=== PATIENT | female | born 1980 | race Caucasian/White ===

== ENCOUNTER 2017-09-07 12:43 | Emergency (ER) | payer OTHER ==
[~2017-09-07] VITALS: Ht 162.6 cm; Wt 118.6 kg
[2017-09-07 13:13] VITALS: Ht 162.6 cm; Wt 118.6 kg
[2017-09-07 16:10] VITALS: BP 140/90
== END 2017-09-07 16:10 | disposition home or self-care (01) ==
LOC: ED 12:43
DX: H60.502 Unspecified acute noninfective otitis externa, left ear (principal)

== ENCOUNTER 2017-09-08 02:56 | Emergency (ER) | payer OTHER | END 2017-09-08 03:33 | disposition left against medical advice (07) | LOC: ED 02:56 | DX: Z53.21 Procedure and treatment not carried out due to patient leaving prior to being seen by health care provider (principal) ==

== ENCOUNTER 2017-09-24 23:59 | Emergency (ER) | payer OTHER ==
[~2017-09-24] VITALS: Ht 167.6 cm; Wt 119.7 kg
[2017-09-25 00:43] VITALS: Ht 167.6 cm; Wt 119.7 kg
[2017-09-25 06:02] VITALS: BP 178/94
== END 2017-09-25 06:02 | disposition home or self-care (01) ==
LOC: ED 23:59
DX: S00.03XA Contusion of scalp, initial encounter (principal); H60.91 Unspecified otitis externa, right ear; I10 Essential (primary) hypertension; E11.9 Type 2 diabetes mellitus without complications; V49.9XXA Car occupant (driver) (passenger) injured in unspecified traffic accident, initial encounter; Y93.89 Activity, other specified; Y92.410 Unspecified street and highway as the place of occurrence of the external cause; Y99.8 Other external cause status
CPT/HCPCS: 90715

== ENCOUNTER 2018-01-17 15:23 | Emergency (ER) | payer OTHER ==
[~2018-01-17] VITALS: Ht 157.5 cm; Wt 118.8 kg
[2018-01-17 15:39] VITALS: Ht 157.5 cm; Wt 118.8 kg
[2018-01-17 17:23] VITALS: BP 182/131
== END 2018-01-17 17:23 | disposition home or self-care (01) ==
LOC: ED 15:23
DX: H66.91 Otitis media, unspecified, right ear (principal); I10 Essential (primary) hypertension; E11.9 Type 2 diabetes mellitus without complications

== ENCOUNTER 2018-01-31 15:51 | Emergency (ER) | payer OTHER ==
[~2018-01-31] VITALS: Ht 165.1 cm; Wt 117.0 kg
[2018-01-31 15:53] VITALS: Ht 165.1 cm; Wt 117.0 kg
[2018-01-31 17:08] VITALS: BP 171/91
== END 2018-01-31 17:08 | disposition home or self-care (01) ==
LOC: ED 15:51
DX: H66.92 Otitis media, unspecified, left ear (principal); E11.9 Type 2 diabetes mellitus without complications; I10 Essential (primary) hypertension
CPT/HCPCS: J1100

== ENCOUNTER 2018-03-07 16:38 | Emergency (ER) | payer OTHER ==
[~2018-03-07] VITALS: Ht 170.2 cm; Wt 117.2 kg
[2018-03-07 16:46] VITALS: Ht 170.2 cm; Wt 117.2 kg
[2018-03-07 18:18] VITALS: BP 156/86
== END 2018-03-07 18:18 | disposition home or self-care (01) ==
LOC: ED 16:38
DX: H66.92 Otitis media, unspecified, left ear (principal); H60.92 Unspecified otitis externa, left ear; I10 Essential (primary) hypertension; E11.9 Type 2 diabetes mellitus without complications
CPT/HCPCS: J1100

== ENCOUNTER 2018-03-09 04:15 | Emergency (ER) | payer OTHER ==
[~2018-03-09] VITALS: Ht 170.2 cm; Wt 118.0 kg
[2018-03-09 04:25] VITALS: Ht 170.2 cm; Wt 118.0 kg
[2018-03-09 05:33] LABS: BASOPHIL % 0.2 % (0-2); PLATELET COUNT 354 x10^3mcL (130-400)
[2018-03-09 05:36] LABS: RED CELL DISTRIBUTION WIDTH 17.3 % (11.5-14.5)
[2018-03-09 05:47] LABS: CALCIUM 9.2 mg/dL (8.5-10.1); CARBON DIOXIDE 24.2 mmol/L (21-32); CHLORIDE SERUM 104 mmol/L (98-107); GFR1 > 60 mL/min; GLUCOSE SERUM 111 mg/dL (74-106); POTASSIUM SERUM 3.1 mmol/L (3.5-5.1); SODIUM SERUM 140 mmol/L (136-145)
[2018-03-09 05:52] LABS: ALBUMIN 3.6 g/dL (3.4-5.0); ALKALINE PHOSPHATASE 37 U/L (46-116); ALT/SGPT 34 U/L (14-59); AST/SGOT 25 U/L (15-37); BILIRUBIN TOTAL 0.65 mg/dL (0.20-1.00); LIPASE 89 IU/L (73-393); TOTAL PROTEIN, SERUM 7.7 g/dL (6.4-8.2)
[2018-03-09 08:45] VITALS: BP 136/80
== END 2018-03-09 08:45 | disposition home or self-care (01) ==
LOC: ED 04:15
PROVIDERS: Emergency Medicine
DX: N83.202 Unspecified ovarian cyst, left side (principal); H60.92 Unspecified otitis externa, left ear; I10 Essential (primary) hypertension; E11.9 Type 2 diabetes mellitus without complications
CPT/HCPCS: 36415

== ENCOUNTER 2018-04-28 00:20 | Emergency (ER) | payer OTHER ==
[~2018-04-28] VITALS: Ht 172.7 cm; Wt 117.9 kg
[2018-04-28 01:13] VITALS: BP 161/94
== END 2018-04-28 01:14 | disposition home or self-care (01) ==
LOC: ED 00:20
DX: H92.02 Otalgia, left ear (principal); I10 Essential (primary) hypertension; E66.9 Obesity, unspecified
CPT/HCPCS: J1100

== ENCOUNTER 2018-06-05 13:30 | Emergency (ER) | payer SELFPAY ==
[~2018-06-05] VITALS: Ht 172.7 cm; Wt 117.0 kg
[2018-06-05 13:38] VITALS: Ht 172.7 cm; Wt 117.0 kg
[2018-06-05 15:24] VITALS: BP 162/89
== END 2018-06-05 15:00 | disposition home or self-care (01) ==
LOC: ED 13:30
DX: H60.92 Unspecified otitis externa, left ear (principal); I10 Essential (primary) hypertension
CPT/HCPCS: J1885

== ENCOUNTER 2018-08-08 00:18 | Emergency (ER) | payer OTHER ==
[~2018-08-08] VITALS: Ht 172.7 cm; Wt 114.8 kg
[2018-08-08 00:29] VITALS: BP 162/88; Ht 172.7 cm; Wt 114.8 kg
== END 2018-08-08 01:42 | disposition left against medical advice (07) ==
LOC: ED 00:18
DX: Z53.21 Procedure and treatment not carried out due to patient leaving prior to being seen by health care provider (principal)

== ENCOUNTER 2018-09-05 13:34 | Emergency (ER) | payer OTHER ==
[~2018-09-05] VITALS: Ht 172.7 cm; Wt 111.6 kg
[2018-09-05 13:45] VITALS: BP 163/79; Ht 172.7 cm; Wt 111.6 kg
== END 2018-09-05 14:43 | disposition home or self-care (01) ==
LOC: ED 13:34
DX: K04.7 Periapical abscess without sinus (principal); H60.91 Unspecified otitis externa, right ear; J06.9 Acute upper respiratory infection, unspecified; I10 Essential (primary) hypertension

== ENCOUNTER 2018-09-17 01:07 | Emergency (ER) | payer SELFPAY ==
[~2018-09-17] VITALS: Ht 172.7 cm; Wt 111.1 kg
[2018-09-17 01:09] VITALS: Ht 172.7 cm; Wt 111.1 kg
[2018-09-17 02:12] VITALS: BP 165/93
== END 2018-09-17 02:12 | disposition home or self-care (01) ==
LOC: ED 01:07
DX: G89.29 Other chronic pain (principal); R10.32 Left lower quadrant pain; I10 Essential (primary) hypertension
CPT/HCPCS: J1885

== ENCOUNTER 2019-02-19 01:06 | Emergency (ER) | payer OTHER ==
[~2019-02-19] VITALS: Ht 172.7 cm; Wt 116.1 kg
[2019-02-19 01:11] VITALS: BP 157/103; Ht 172.7 cm; Wt 116.1 kg
== END 2019-02-19 01:35 | disposition home or self-care (01) ==
LOC: ED 01:06
DX: H60.502 Unspecified acute noninfective otitis externa, left ear (principal); I10 Essential (primary) hypertension

== ENCOUNTER 2019-05-30 08:32 | Emergency (ER) | payer OTHER ==
[~2019-05-30] VITALS: Ht 172.7 cm; Wt 116.6 kg
[2019-05-30 08:33] VITALS: Ht 172.7 cm; Wt 116.6 kg
[2019-05-30 09:58] VITALS: BP 132/74
== END 2019-05-30 09:58 | disposition home or self-care (01) ==
LOC: ED 08:32
DX: H66.91 Otitis media, unspecified, right ear (principal); K08.89 Other specified disorders of teeth and supporting structures; I10 Essential (primary) hypertension; Z98.890 Other specified postprocedural states

== ENCOUNTER 2019-08-31 23:57 | Inpatient (IN) | payer OTHER ==
[~2019-08-31] VITALS: Ht 172.7 cm; Wt 112.5 kg
[2019-09-01 00:01] VITALS: Ht 172.7 cm; Wt 112.5 kg
[2019-09-01 01:04] LABS: BASOPHIL % 0.1 % (0-2); PLATELET COUNT 235 x10^3mcL (130-400); RED CELL DISTRIBUTION WIDTH 20.1 % (11.5-14.5)
[2019-09-01 01:11] LABS: CALCIUM 8.4 mg/dL (8.5-10.1); CARBON DIOXIDE 24.1 mmol/L (21-32); CHLORIDE SERUM 105 mmol/L (98-107); CREATININE SERUM 0.8 mg/dL (0.6-1.0); GFR1 > 60 mL/min; GLUCOSE SERUM 102 mg/dL (74-106); POTASSIUM SERUM 3.6 mmol/L (3.5-5.1); SODIUM SERUM 137 mmol/L (136-145)
[2019-09-01 01:12] LABS: rbc morphology (normal/abnorm) ABNORMAL (NORMAL)
[2019-09-01 01:17] LABS: ALKALINE PHOSPHATASE 54 U/L (46-116); ALT/SGPT 385 U/L (14-59); AST/SGOT 182 U/L (15-37); LIPASE 63 IU/L (73-393)
[2019-09-01 01:18] LABS: TOTAL PROTEIN, SERUM 9.1 g/dL (6.4-8.2)
[2019-09-01] MEDS ORDERED: MICARDIS80 MG (03:25)
[2019-09-01 06:48] VITALS: BP 124/66
[2019-09-01 09:25] VITALS: BP 140/67
[2019-09-01 12:04] VITALS: BP 134/70
[2019-09-01 18:04] VITALS: BP 126/78
[2019-09-01 19:56] LABS: UA SPECIFIC GRAVITY 1.015 (1.005-1.035); microscopic required? YES; urine erythrocyte TRACE (NEGATIVE)
[2019-09-01 20:00] VITALS: BP 115/55
[2019-09-02 05:34] VITALS: BP 108/54
[2019-09-02 07:14] LABS: CARBON DIOXIDE 23.2 mmol/L (21-32); CHLORIDE SERUM 106 mmol/L (98-107); CREATININE SERUM 0.8 mg/dL (0.6-1.0); GFR1 > 60 mL/min; POTASSIUM SERUM 3.9 mmol/L (3.5-5.1); SODIUM SERUM 138 mmol/L (136-145)
[2019-09-02 07:29] LABS: GLUCOSE SERUM 132 mg/dL (74-106)
[2019-09-02 07:34] LABS: PLATELET COUNT 210 x10^3mcL (130-400)
[2019-09-02 07:44] LABS: BASOPHIL % 0 % (0-2); RED CELL DISTRIBUTION WIDTH 19.5 % (11.5-14.5)
[2019-09-02 08:24] VITALS: BP 119/55
[2019-09-02 12:35] VITALS: BP 130/67
[2019-09-02 16:35] VITALS: BP 106/49
[2019-09-02 20:58] VITALS: BP 113/58
[2019-09-03 05:43] VITALS: BP 102/79
[2019-09-03 06:28] LABS: CALCIUM 7.9 mg/dL (8.5-10.1); CARBON DIOXIDE 22.4 mmol/L (21-32); CHLORIDE SERUM 107 mmol/L (98-107); CREATININE SERUM 0.8 mg/dL (0.6-1.0); GFR1 > 60 mL/min; GLUCOSE SERUM 92 mg/dL (74-106); MAGNESIUM 2.1 mg/dL (1.8-2.4); POTASSIUM SERUM 3.8 mmol/L (3.5-5.1); SODIUM SERUM 138 mmol/L (136-145)
[2019-09-03 06:38] LABS: BASOPHIL % 0.2 % (0-2); PLATELET COUNT 285 x10^3mcL (130-400)
[2019-09-03 07:29] LABS: RED CELL DISTRIBUTION WIDTH 19.6 % (11.5-14.5)
[2019-09-03 08:01] VITALS: BP 118/77
[2019-09-03 09:58] LABS: ovalocyte/elliptocyte 1+; rbc morphology (normal/abnorm) ABNORMAL (NORMAL); tear drop cell (dacryocyte) 2+
[2019-09-03 12:12] VITALS: BP 123/58
[2019-09-03 16:11] VITALS: BP 114/60
[2019-09-03 20:41] VITALS: BP 124/63
[2019-09-04 06:02] VITALS: BP 116/58
[2019-09-04 07:55] VITALS: BP 125/77
[2019-09-04 11:18] VITALS: BP 110/67
[2019-09-04] MEDS ORDERED: PER5 PO (15:35)
[2019-09-04] MEDS ORDERED: ZOF4 PO (15:36)
[2019-09-04] MEDS ORDERED: FLA500 PO (15:36)
[2019-09-04] MEDS ORDERED: COL100 PO (15:36)
[2019-09-04] MEDS ORDERED: CIPRO500 MG PO (15:36)
[2019-09-04 15:52] VITALS: BP 110/67
== END 2019-09-04 16:45 | disposition home or self-care (01) | DRG 234 ==
LOC: ED 23:57 → MU 09-01 05:31
PROVIDERS: Emergency Medicine; Internal Medicine Pulmonary Disease; Surgery; ADMIT Internal Medicine Nephrology
PROC: 0DTJ4ZZ Resection of Appendix, Percutaneous Endoscopic Approach (ICD-10-PCS; principal; 2019-09-01 18:00)
DX: K52.89 Other specified noninfective gastroenteritis and colitis (principal); E86.9 Volume depletion, unspecified; I10 Essential (primary) hypertension; Z79.899 Other long term (current) drug therapy
CPT/HCPCS: 87046; 87046-59; 94150; G0378; J1170; J1650; J2175; J2250; J2270; J2405; J2543; J3010; J3480; J3490; J7042; Q0092

== ENCOUNTER 2019-09-21 22:16 | Inpatient (IN) | payer OTHER ==
[~2019-09-21] VITALS: Ht 172.7 cm; Wt 113.4 kg
[~2019-09-21 22:16] MED LIST: CIPRO500 MG PO; COL100 PO; FLA500 PO; MICARDIS80 MG; PER5 PO; ZOF4 PO
[2019-09-21 22:20] VITALS: Ht 172.7 cm; Wt 113.4 kg
[2019-09-21 23:15] LABS: BASOPHIL % 0.6 % (0-2); PLATELET COUNT 280 x10^3mcL (130-400)
[2019-09-21 23:16] LABS: RED CELL DISTRIBUTION WIDTH 18.9 % (11.5-14.5)
[2019-09-21 23:48] LABS: ALKALINE PHOSPHATASE 39 U/L (46-116); ALT/SGPT 35 U/L (14-59); AST/SGOT 24 U/L (15-37); BILIRUBIN TOTAL 0.8 mg/dL (0.20-1.00); CALCIUM 8.6 mg/dL (8.5-10.1); CARBON DIOXIDE 24.9 mmol/L (21-32); CHLORIDE SERUM 101 mmol/L (98-107); CREATININE SERUM 0.7 mg/dL (0.6-1.0); GFR1 > 60 mL/min; GLUCOSE SERUM 119 mg/dL (74-106); SODIUM SERUM 133 mmol/L (136-145); TOTAL PROTEIN, SERUM 8.2 g/dL (6.4-8.2)
[2019-09-21 23:54] LABS: CALCIUM 8.6 mg/dL (8.5-10.1); MAGNESIUM 1.8 mg/dL (1.8-2.4); T4(THYROXINE) 13.5 ug/dL (4.7-13.3)
[2019-09-22 01:00] LABS: microscopic required? YES; urine erythrocyte NEGATIVE (NEGATIVE)
[2019-09-22 05:44] LABS: BASOPHIL % 0.4 % (0-2); PLATELET COUNT 275 x10^3mcL (130-400)
[2019-09-22 05:45] LABS: RED CELL DISTRIBUTION WIDTH 18.1 % (11.5-14.5)
[2019-09-22 06:02] LABS: ALKALINE PHOSPHATASE 39 U/L (46-116); ALT/SGPT 28 U/L (14-59); AST/SGOT 21 U/L (15-37); BILIRUBIN TOTAL 0.83 mg/dL (0.20-1.00); CALCIUM 8.6 mg/dL (8.5-10.1); CARBON DIOXIDE 24.7 mmol/L (21-32); CHLORIDE SERUM 104 mmol/L (98-107); CREATININE SERUM 0.8 mg/dL (0.6-1.0); GFR1 > 60 mL/min; GLUCOSE SERUM 110 mg/dL (74-106); MAGNESIUM 1.9 mg/dL (1.8-2.4); POTASSIUM SERUM 3.2 mmol/L (3.5-5.1); SODIUM SERUM 140 mmol/L (136-145)
[2019-09-22 06:13] LABS: TOTAL PROTEIN, SERUM 8.4 g/dL (6.4-8.2)
[2019-09-22 09:23] VITALS: BP 126/60
[2019-09-22 12:17] VITALS: BP 121/69
[2019-09-22 15:59] VITALS: BP 109/67
[2019-09-22 19:50] VITALS: BP 139/71
[2019-09-23 06:05] VITALS: BP 146/72
[2019-09-23 06:46] LABS: BASOPHIL % 0.3 % (0-2); PLATELET COUNT 249 x10^3mcL (130-400)
[2019-09-23 06:57] LABS: RED CELL DISTRIBUTION WIDTH 18.6 % (11.5-14.5)
[2019-09-23 06:58] LABS: rbc morphology (normal/abnorm) ABNORMAL (NORMAL)
[2019-09-23 07:11] LABS: ALBUMIN 2.6 g/dL (3.4-5.0); ALKALINE PHOSPHATASE 30 U/L (46-116); ALT/SGPT 29 U/L (14-59); AST/SGOT 24 U/L (15-37); BILIRUBIN TOTAL 0.6 mg/dL (0.20-1.00); CALCIUM 8.3 mg/dL (8.5-10.1); CARBON DIOXIDE 24.6 mmol/L (21-32); CHLORIDE SERUM 99 mmol/L (98-107); CREATININE SERUM 0.7 mg/dL (0.6-1.0); GFR1 > 60 mL/min; GLUCOSE SERUM 86 mg/dL (74-106); MAGNESIUM 1.9 mg/dL (1.8-2.4); POTASSIUM SERUM 3.4 mmol/L (3.5-5.1); SODIUM SERUM 131 mmol/L (136-145); TOTAL PROTEIN, SERUM 7.9 g/dL (6.4-8.2)
[2019-09-23 09:00] VITALS: BP 140/79
== END 2019-09-23 12:59 | disposition left against medical advice (07) | DRG 249 ==
LOC: ED 22:16 → DU 09-22 01:36
PROVIDERS: Emergency Medicine; ADMIT Internal Medicine Pulmonary Disease
DX: K52.9 Noninfective gastroenteritis and colitis, unspecified (principal); I50.41 Acute combined systolic (congestive) and diastolic (congestive) heart failure; J18.9 Pneumonia, unspecified organism; I11.0 Hypertensive heart disease with heart failure; K57.30 Diverticulosis of large intestine without perforation or abscess without bleeding; K44.9 Diaphragmatic hernia without obstruction or gangrene; Z53.21 Procedure and treatment not carried out due to patient leaving prior to being seen by health care provider; D50.9 Iron deficiency anemia, unspecified; E66.9 Obesity, unspecified; Z68.38 Body mass index [BMI] 38.0-38.9, adult; Z90.49 Acquired absence of other specified parts of digestive tract; Z79.899 Other long term (current) drug therapy
CPT/HCPCS: 36600; 82962; 83880; 87804; G0378; J0696; J1940; J2405; J2543; J3480; J3490; J7030; Q0092; Q9967

== ENCOUNTER 2019-09-26 01:52 | Emergency (ER) | payer OTHER ==
[~2019-09-26] VITALS: Ht 172.7 cm; Wt 109.5 kg
[2019-09-26 02:04] VITALS: Ht 172.7 cm; Wt 109.5 kg
[2019-09-26 06:11] LABS: BASOPHIL % 0.4 % (0-2); PLATELET COUNT 233 x10^3mcL (130-400)
[2019-09-26 06:12] LABS: RED CELL DISTRIBUTION WIDTH 18.3 % (11.5-14.5)
[2019-09-26 06:31] LABS: ALBUMIN 3.1 g/dL (3.4-5.0); ALKALINE PHOSPHATASE 36 U/L (46-116); ALT/SGPT 30 U/L (14-59); AST/SGOT 27 U/L (15-37); BILIRUBIN TOTAL 0.7 mg/dL (0.20-1.00); CALCIUM 8.6 mg/dL (8.5-10.1); CARBON DIOXIDE 26.2 mmol/L (21-32); CHLORIDE SERUM 106 mmol/L (98-107); CREATININE SERUM 0.9 mg/dL (0.6-1.0); GFR1 > 60 mL/min; GLUCOSE SERUM 93 mg/dL (74-106); POTASSIUM SERUM 3.5 mmol/L (3.5-5.1); SODIUM SERUM 138 mmol/L (136-145); TOTAL PROTEIN, SERUM 8.4 g/dL (6.4-8.2)
[2019-09-26 06:54] LABS: UA SPECIFIC GRAVITY >=1.030 (1.005-1.035); microscopic required? YES; urine erythrocyte 3+ (NEGATIVE)
[2019-09-26 08:02] VITALS: BP 145/86
== END 2019-09-26 08:02 | disposition home or self-care (01) ==
LOC: ED 01:52
PROVIDERS: Emergency Medicine
DX: J18.9 Pneumonia, unspecified organism (principal); D64.9 Anemia, unspecified; I10 Essential (primary) hypertension; Z90.89 Acquired absence of other organs; Z86.2 Personal history of diseases of the blood and blood-forming organs and certain disorders involving the immune mechanism; Z98.890 Other specified postprocedural states; Z88.5 Allergy status to narcotic agent; Z88.8 Allergy status to other drugs, medicaments and biological substances
CPT/HCPCS: 36415; 83880; Q0092

== ENCOUNTER 2019-11-01 00:17 | Emergency (ER) | payer OTHER ==
[~2019-11-01] VITALS: Ht 172.7 cm; Wt 111.1 kg
[2019-11-01 00:29] VITALS: Ht 172.7 cm; Wt 111.1 kg
[2019-11-01 03:47] LABS: PLATELET COUNT 242 x10^3mcL (130-400); RED CELL DISTRIBUTION WIDTH 17.7 % (11.5-14.5)
[2019-11-01 03:50] LABS: BASOPHIL % 0.4 % (0-2)
[2019-11-01 04:04] LABS: ovalocyte/elliptocyte 1+; rbc morphology (normal/abnorm) ABNORMAL (NORMAL); tear drop cell (dacryocyte) 1+
[2019-11-01 04:14] LABS: SODIUM SERUM 140 mmol/L (136-145)
[2019-11-01 04:15] LABS: CARBON DIOXIDE 27.2 mmol/L (21-32); CHLORIDE SERUM 106 mmol/L (98-107); GLUCOSE SERUM 94 mg/dL (74-106); POTASSIUM SERUM 3.3 mmol/L (3.5-5.1)
[2019-11-01 04:20] LABS: CREATININE SERUM 0.8 mg/dL (0.6-1.0); GFR1 > 60 mL/min
[2019-11-01 04:21] LABS: TOTAL PROTEIN, SERUM 8.5 g/dL (6.4-8.2)
[2019-11-01 04:24] LABS: ALBUMIN 3.2 g/dL (3.4-5.0); AST/SGOT 141 U/L (15-37); BILIRUBIN TOTAL 1.3 mg/dL (0.20-1.00); CALCIUM 8.6 mg/dL (8.5-10.1)
[2019-11-01 04:25] LABS: ALKALINE PHOSPHATASE 46 U/L (46-116); ALT/SGPT 273 U/L (14-59); LIPASE 81 IU/L (73-393)
[2019-11-01 05:20] VITALS: BP 138/79
== END 2019-11-01 05:04 | disposition home or self-care (01) ==
LOC: ED 00:17
PROVIDERS: Emergency Medicine
DX: R10.9 Unspecified abdominal pain (principal); K92.1 Melena; R05 Cough; I11.0 Hypertensive heart disease with heart failure; I50.9 Heart failure, unspecified; Z90.89 Acquired absence of other organs; Z98.890 Other specified postprocedural states; Z88.8 Allergy status to other drugs, medicaments and biological substances
CPT/HCPCS: 36415

== ENCOUNTER 2019-11-20 18:36 | Emergency (ER) | payer OTHER | END 2019-11-20 19:46 | disposition left against medical advice (07) | LOC: ED 18:36 | DX: Z53.21 Procedure and treatment not carried out due to patient leaving prior to being seen by health care provider (principal) ==

== ENCOUNTER 2020-02-02 21:54 | Emergency (ER) | payer OTHER ==
[~2020-02-02] VITALS: Ht 172.7 cm; Wt 113.4 kg
[2020-02-02 21:58] VITALS: Ht 172.7 cm; Wt 113.4 kg
[2020-02-02 22:16] VITALS: BP 166/97
== END 2020-02-02 22:16 | disposition home or self-care (01) ==
LOC: ED 21:54
DX: H60.502 Unspecified acute noninfective otitis externa, left ear (principal); I11.0 Hypertensive heart disease with heart failure; I50.9 Heart failure, unspecified; Z90.89 Acquired absence of other organs; Z98.890 Other specified postprocedural states; Z88.8 Allergy status to other drugs, medicaments and biological substances

== ENCOUNTER 2020-02-04 10:32 | Emergency (ER) | payer OTHER ==
[~2020-02-04] VITALS: Ht 172.7 cm; Wt 112.5 kg
[2020-02-04 10:37] VITALS: Ht 172.7 cm; Wt 112.5 kg
[2020-02-04 11:12] VITALS: BP 191/103
== END 2020-02-04 11:12 | disposition home or self-care (01) ==
LOC: ED 10:32
DX: K08.89 Other specified disorders of teeth and supporting structures (principal); I11.0 Hypertensive heart disease with heart failure; I50.9 Heart failure, unspecified; Z90.89 Acquired absence of other organs; Z98.890 Other specified postprocedural states; Z88.8 Allergy status to other drugs, medicaments and biological substances

== ENCOUNTER 2020-06-20 00:20 | Emergency (ER) | payer OTHER ==
[~2020-06-20] VITALS: Ht 172.7 cm; Wt 108.9 kg
[2020-06-20 00:38] VITALS: Ht 172.7 cm; Wt 108.9 kg
[2020-06-20 01:40] LABS: BASOPHIL % 0.5 % (0-2); PLATELET COUNT 240 x10^3mcL (130-400)
[2020-06-20 01:42] LABS: RED CELL DISTRIBUTION WIDTH 17.2 % (11.5-14.5)
[2020-06-20 02:10] LABS: CALCIUM 9.2 mg/dL (8.5-10.1); CARBON DIOXIDE 27.8 mmol/L (21-32); CHLORIDE SERUM 102 mmol/L (98-107); GFR1 > 60 mL/min; GLUCOSE SERUM 122 mg/dL (74-106); POTASSIUM SERUM 3.9 mmol/L (3.5-5.1); SODIUM SERUM 135 mmol/L (136-145)
[2020-06-20 02:15] LABS: ALKALINE PHOSPHATASE 37 U/L (46-116); ALT/SGPT 65 U/L (14-59); AST/SGOT 48 U/L (15-37); BILIRUBIN TOTAL 0.8 mg/dL (0.20-1.00)
[2020-06-20 02:21] LABS: ALBUMIN 3.1 g/dL (3.4-5.0); TOTAL PROTEIN, SERUM 9.1 g/dL (6.4-8.2)
[2020-06-20 03:12] VITALS: BP 177/92
== END 2020-06-20 03:12 | disposition home or self-care (01) ==
LOC: ED 00:20
DX: R07.89 Other chest pain (principal); I11.0 Hypertensive heart disease with heart failure; I50.9 Heart failure, unspecified; Z98.890 Other specified postprocedural states; Z90.89 Acquired absence of other organs; Z88.6 Allergy status to analgesic agent
CPT/HCPCS: Q0092

== ENCOUNTER 2020-07-23 01:09 | Inpatient (IN) | payer OTHER ==
[~2020-07-23] VITALS: Ht 172.7 cm; Wt 117.0 kg
[2020-07-23 01:14] VITALS: Ht 172.7 cm; Wt 117.0 kg
[2020-07-23 02:11] LABS: BASOPHIL % 0.8 % (0-2); PLATELET COUNT 239 x10^3mcL (130-400)
[2020-07-23 02:21] LABS: CALCIUM 8.5 mg/dL (8.5-10.1); CARBON DIOXIDE 28.4 mmol/L (21-32); CHLORIDE SERUM 104 mmol/L (98-107); CREATININE SERUM 0.8 mg/dL (0.6-1.0); GFR1 > 60 mL/min; GLUCOSE SERUM 107 mg/dL (74-106); POTASSIUM SERUM 3.3 mmol/L (3.5-5.1); SODIUM SERUM 140 mmol/L (136-145)
[2020-07-23 02:26] LABS: ALKALINE PHOSPHATASE 35 U/L (46-116); ALT/SGPT 37 U/L (14-59); AST/SGOT 37 U/L (15-37); BILIRUBIN TOTAL 0.92 mg/dL (0.20-1.00); LIPASE 68 IU/L (73-393)
[2020-07-23 02:28] LABS: RED CELL DISTRIBUTION WIDTH 15.4 % (11.5-14.5)
[2020-07-23 02:29] LABS: TOTAL PROTEIN, SERUM 8.8 g/dL (6.4-8.2)
[2020-07-23 11:21] VITALS: BP 142/42
[2020-07-23 11:29] VITALS: BP 142/82
[2020-07-23 17:17] VITALS: BP 118/58
[2020-07-23 21:08] VITALS: BP 147/77
[2020-07-24 05:26] VITALS: BP 135/62
[2020-07-24 07:38] LABS: ALKALINE PHOSPHATASE 29 U/L (46-116); ALT/SGPT 30 U/L (14-59); AST/SGOT 32 U/L (15-37); BILIRUBIN TOTAL 0.91 mg/dL (0.20-1.00); CALCIUM 8.3 mg/dL (8.5-10.1); CARBON DIOXIDE 23.1 mmol/L (21-32); CHLORIDE SERUM 106 mmol/L (98-107); CREATININE SERUM 0.8 mg/dL (0.6-1.0); GFR1 > 60 mL/min; GLUCOSE SERUM 85 mg/dL (74-106); POTASSIUM SERUM 3.6 mmol/L (3.5-5.1); SODIUM SERUM 138 mmol/L (136-145); TOTAL PROTEIN, SERUM 7.8 g/dL (6.4-8.2)
[2020-07-24 07:41] LABS: ALBUMIN 2.6 g/dL (3.4-5.0)
[2020-07-24 07:54] LABS: BASOPHIL % 0.6 % (0-2)
[2020-07-24 07:57] VITALS: BP 135/77
[2020-07-24 08:11] LABS: RED CELL DISTRIBUTION WIDTH 16.2 % (11.5-14.5)
[2020-07-24 10:40] LABS: rbc morphology (normal/abnorm) ABNORMAL (NORMAL)
[2020-07-24 10:42] LABS: PLATELET COUNT 197 x10^3mcL (130-400)
[2020-07-24 11:51] VITALS: BP 156/82
[2020-07-24 16:04] VITALS: BP 146/65
[2020-07-24 19:56] VITALS: BP 165/82
[2020-07-25 05:23] VITALS: BP 158/84
[2020-07-25 07:12] LABS: BASOPHIL % 0.4 % (0-2); PLATELET COUNT 205 x10^3mcL (130-400)
[2020-07-25 07:49] LABS: ALKALINE PHOSPHATASE 29 U/L (46-116); ALT/SGPT 26 U/L (14-59); AST/SGOT 35 U/L (15-37); BILIRUBIN TOTAL 0.9 mg/dL (0.20-1.00); CALCIUM 8.2 mg/dL (8.5-10.1); CARBON DIOXIDE 24.4 mmol/L (21-32); CHLORIDE SERUM 102 mmol/L (98-107); CREATININE SERUM 0.7 mg/dL (0.6-1.0); GFR1 > 60 mL/min; GLUCOSE SERUM 71 mg/dL (74-106); MAGNESIUM 1.8 mg/dL (1.8-2.4); POTASSIUM SERUM 3.5 mmol/L (3.5-5.1); SODIUM SERUM 135 mmol/L (136-145)
[2020-07-25 07:56] LABS: ALBUMIN 2.8 g/dL (3.4-5.0)
[2020-07-25 08:11] VITALS: BP 140/69
[2020-07-25 09:05] LABS: RED CELL DISTRIBUTION WIDTH 16.1 % (11.5-14.5)
[2020-07-25 12:10] VITALS: BP 147/75
[2020-07-25 13:57] LABS: rbc morphology (normal/abnorm) ABNORMAL (NORMAL)
[2020-07-25 16:12] VITALS: BP 155/79
[2020-07-25 20:24] VITALS: BP 154/80
[2020-07-26 06:07] VITALS: BP 160/77
[2020-07-26 07:01] LABS: BASOPHIL % 0.4 % (0-2); PLATELET COUNT 232 x10^3mcL (130-400)
[2020-07-26 07:18] LABS: ALBUMIN 2.8 g/dL (3.4-5.0); ALKALINE PHOSPHATASE 31 U/L (46-116); ALT/SGPT 29 U/L (14-59); AST/SGOT 42 U/L (15-37); CALCIUM 8.3 mg/dL (8.5-10.1); CARBON DIOXIDE 20.9 mmol/L (21-32); CHLORIDE SERUM 101 mmol/L (98-107); CREATININE SERUM 0.7 mg/dL (0.6-1.0); GFR1 > 60 mL/min; GLUCOSE SERUM 69 mg/dL (74-106); MAGNESIUM 1.7 mg/dL (1.8-2.4); POTASSIUM SERUM 3.5 mmol/L (3.5-5.1); SODIUM SERUM 135 mmol/L (136-145); TOTAL PROTEIN, SERUM 8.5 g/dL (6.4-8.2)
[2020-07-26 08:13] VITALS: BP 156/78
[2020-07-26 12:08] VITALS: BP 129/67
[2020-07-26 13:33] LABS: rbc morphology (normal/abnorm) ABNORMAL (NORMAL)
[2020-07-26 16:53] VITALS: BP 153/80
[2020-07-26 20:01] VITALS: BP 156/80
[2020-07-27 06:01] VITALS: BP 134/74
[2020-07-27 06:59] LABS: BASOPHIL % 0.4 % (0-2); PLATELET COUNT 226 x10^3mcL (130-400)
[2020-07-27 07:16] LABS: RED CELL DISTRIBUTION WIDTH 16.3 % (11.5-14.5)
[2020-07-27 07:22] LABS: ALKALINE PHOSPHATASE 30 U/L (46-116); ALT/SGPT 23 U/L (14-59); AST/SGOT 36 U/L (15-37); BILIRUBIN TOTAL 0.7 mg/dL (0.20-1.00); CALCIUM 7.9 mg/dL (8.5-10.1); CARBON DIOXIDE 24.7 mmol/L (21-32); CHLORIDE SERUM 103 mmol/L (98-107); CREATININE SERUM 0.7 mg/dL (0.6-1.0); GFR1 > 60 mL/min; GLUCOSE SERUM 90 mg/dL (74-106); MAGNESIUM 1.7 mg/dL (1.8-2.4); POTASSIUM SERUM 3.1 mmol/L (3.5-5.1); SODIUM SERUM 136 mmol/L (136-145)
[2020-07-27 07:26] LABS: ALBUMIN 2.7 g/dL (3.4-5.0)
[2020-07-27 08:10] VITALS: BP 139/75
[2020-07-27 10:42] LABS: rbc morphology (normal/abnorm) ABNORMAL (NORMAL)
[2020-07-27] MEDS ORDERED: COZ50 PO (11:38)
[2020-07-27] MEDS ORDERED: DIL2 PO (11:39)
[2020-07-27] MEDS ORDERED: MIRUD PO (11:39)
[2020-07-27] MEDS ORDERED: SEN PO (11:40)
[2020-07-27] MEDS ORDERED: KEFLEX500 M1 PO (11:41)
[2020-07-27] MEDS ORDERED: VSL#3112.5 Bill PO (11:41)
[2020-07-27 12:26] VITALS: BP 152/84
[2020-07-27 16:15] VITALS: BP 151/79
[2020-07-27 16:31] VITALS: BP 151/79
== END 2020-07-27 18:25 | disposition home or self-care (01) | DRG 244 ==
LOC: ED 01:09 → DU 06:59 → MU 07-27 15:24
PROVIDERS: Emergency Medicine; Obstetrics & Gynecology; ADMIT Hospitalist; ATTEND Hospitalist
DX: K57.32 Diverticulitis of large intestine without perforation or abscess without bleeding (principal); I11.0 Hypertensive heart disease with heart failure; I50.9 Heart failure, unspecified; E66.01 Morbid (severe) obesity due to excess calories; D64.9 Anemia, unspecified; E83.42 Hypomagnesemia; Z20.828 Contact with and (suspected) exposure to other viral communicable diseases; Z79.899 Other long term (current) drug therapy; Z90.49 Acquired absence of other specified parts of digestive tract; Z68.39 Body mass index [BMI] 39.0-39.9, adult; Z88.8 Allergy status to other drugs, medicaments and biological substances
CPT/HCPCS: G0378; J0696; J1170; J1650; J1885; J2270; J2405; J2765; J3490; J7030; J7060

== ENCOUNTER 2020-09-24 17:54 | Inpatient (IN) | payer OTHER ==
[~2020-09-24] VITALS: Ht 172.7 cm; Wt 113.4 kg
[~2020-09-24 17:54] MED LIST changes: +COZ50 PO; +DIL2 PO; +KEFLEX500 M1 PO; +MIRUD PO; +SEN PO; +VSL#3112.5 Bill PO
[2020-09-24 18:34] VITALS: Ht 172.7 cm; Wt 113.4 kg
[2020-09-24 20:19] LABS: BASOPHIL % 0.5 % (0.2-1.3); PLATELET COUNT 329 x10^3mcL (179-408)
[2020-09-24 20:28] LABS: RED CELL DISTRIBUTION WIDTH 18.4 % (12.3-17.7)
[2020-09-24 21:06] LABS: CALCIUM 8.7 mg/dL (8.5-10.1); CARBON DIOXIDE 25.6 mmol/L (21-32); CHLORIDE SERUM 97 mmol/L (98-107); CREATININE SERUM 0.8 mg/dL (0.6-1.0); GFR1 > 60 mL/min; GLUCOSE SERUM 95 mg/dL (74-106); POTASSIUM SERUM 3.3 mmol/L (3.5-5.1); SODIUM SERUM 131 mmol/L (136-145)
[2020-09-24 21:11] LABS: ALKALINE PHOSPHATASE 35 U/L (46-116); ALT/SGPT 47 U/L (14-59); AST/SGOT 38 U/L (15-37); BILIRUBIN TOTAL 1.33 mg/dL (0.20-1.00); LIPASE 69 IU/L (73-393)
[2020-09-24 21:16] LABS: ALBUMIN 3.2 g/dL (3.4-5.0); TOTAL PROTEIN, SERUM 9.4 g/dL (6.4-8.2)
[2020-09-24 23:22] VITALS: BP 166/101
[2020-09-25 05:38] VITALS: BP 142/79
[2020-09-25 07:50] VITALS: BP 158/89
[2020-09-25 10:25] LABS: BASOPHIL % 0.5 % (0.2-1.3); PLATELET COUNT 296 x10^3mcL (179-408)
[2020-09-25 10:49] LABS: ALKALINE PHOSPHATASE 28 U/L (46-116); ALT/SGPT 35 U/L (14-59); AST/SGOT 38 U/L (15-37); BILIRUBIN TOTAL 1.14 mg/dL (0.20-1.00); CALCIUM 8.1 mg/dL (8.5-10.1); CARBON DIOXIDE 22.9 mmol/L (21-32); CHLORIDE SERUM 100 mmol/L (98-107); CREATININE SERUM 0.7 mg/dL (0.6-1.0); GFR1 > 60 mL/min; GLUCOSE SERUM 98 mg/dL (74-106); POTASSIUM SERUM 3.3 mmol/L (3.5-5.1); SODIUM SERUM 131 mmol/L (136-145)
[2020-09-25 10:50] LABS: ALBUMIN 2.7 g/dL (3.4-5.0); TOTAL PROTEIN, SERUM 8.3 g/dL (6.4-8.2)
[2020-09-25 10:51] LABS: RED CELL DISTRIBUTION WIDTH 18.1 % (12.3-17.7)
[2020-09-25 13:31] LABS: rbc morphology (normal/abnorm) ABNORMAL (NORMAL)
[2020-09-25 13:32] LABS: ovalocyte/elliptocyte 1+; tear drop cell (dacryocyte) 1+
[2020-09-25 18:56] VITALS: BP 144/76
[2020-09-25 21:04] VITALS: BP 156/79
[2020-09-26 03:06] LABS: BASOPHIL % 0.5 % (0.2-1.3); PLATELET COUNT 289 x10^3mcL (179-408)
[2020-09-26 03:07] LABS: RED CELL DISTRIBUTION WIDTH 18.7 % (12.3-17.7)
[2020-09-26 03:36] LABS: ALKALINE PHOSPHATASE 31 U/L (46-116); ALT/SGPT 32 U/L (14-59); AST/SGOT 30 U/L (15-37); BILIRUBIN TOTAL 1.3 mg/dL (0.20-1.00); CARBON DIOXIDE 22.9 mmol/L (21-32); CHLORIDE SERUM 103 mmol/L (98-107); CREATININE SERUM 0.7 mg/dL (0.6-1.0); GFR1 > 60 mL/min; GLUCOSE SERUM 87 mg/dL (74-106); MAGNESIUM 1.9 mg/dL (1.8-2.4); POTASSIUM SERUM 3.4 mmol/L (3.5-5.1); SODIUM SERUM 137 mmol/L (136-145)
[2020-09-26 03:40] LABS: ALBUMIN 2.7 g/dL (3.4-5.0)
[2020-09-26 05:28] VITALS: BP 149/78
[2020-09-26 08:10] VITALS: BP 146/79
[2020-09-26 16:00] VITALS: BP 153/87
[2020-09-27 03:50] VITALS: BP 159/83
[2020-09-27 08:03] VITALS: BP 137/72
[2020-09-27 11:11] LABS: BASOPHIL % 0.4 % (0.2-1.3); PLATELET COUNT 290 x10^3mcL (179-408)
[2020-09-27 11:12] LABS: RED CELL DISTRIBUTION WIDTH 18.4 % (12.3-17.7)
[2020-09-27 11:14] LABS: rbc morphology (normal/abnorm) ABNORMAL (NORMAL)
[2020-09-27 12:00] VITALS: BP 149/81
[2020-09-27 12:01] LABS: ALKALINE PHOSPHATASE 35 U/L (46-116); ALT/SGPT 29 U/L (14-59); AST/SGOT 30 U/L (15-37); BILIRUBIN TOTAL 1.6 mg/dL (0.20-1.00); CALCIUM 7.9 mg/dL (8.5-10.1); CARBON DIOXIDE 21.7 mmol/L (21-32); CHLORIDE SERUM 102 mmol/L (98-107); CREATININE SERUM 0.6 mg/dL (0.6-1.0); GFR1 > 60 mL/min; GLUCOSE SERUM 87 mg/dL (74-106); MAGNESIUM 1.8 mg/dL (1.8-2.4); POTASSIUM SERUM 3.3 mmol/L (3.5-5.1); SODIUM SERUM 135 mmol/L (136-145); TOTAL PROTEIN, SERUM 7.5 g/dL (6.4-8.2)
[2020-09-27 12:03] LABS: ALBUMIN 2.3 g/dL (3.4-5.0)
[2020-09-27 16:00] VITALS: BP 133/81
[2020-09-28 06:52] LABS: BASOPHIL % 1.2 % (0.2-1.3); PLATELET COUNT 274 x10^3mcL (179-408)
[2020-09-28 07:08] LABS: ALKALINE PHOSPHATASE 43 U/L (46-116); ALT/SGPT 29 U/L (14-59); AST/SGOT 35 U/L (15-37); BILIRUBIN TOTAL 1.4 mg/dL (0.20-1.00); CARBON DIOXIDE 23.1 mmol/L (21-32); CHLORIDE SERUM 103 mmol/L (98-107); CREATININE SERUM 0.6 mg/dL (0.6-1.0); GFR1 > 60 mL/min; GLUCOSE SERUM 83 mg/dL (74-106); MAGNESIUM 1.8 mg/dL (1.8-2.4); POTASSIUM SERUM 3.2 mmol/L (3.5-5.1); SODIUM SERUM 136 mmol/L (136-145); TOTAL PROTEIN, SERUM 7.4 g/dL (6.4-8.2)
[2020-09-28 07:15] LABS: ALBUMIN 2.2 g/dL (3.4-5.0)
[2020-09-28 07:55] VITALS: BP 152/74
[2020-09-28 08:04] LABS: RED CELL DISTRIBUTION WIDTH 18.4 % (12.3-17.7)
[2020-09-28 12:10] VITALS: BP 148/82
[2020-09-28 17:33] VITALS: BP 140/78
[2020-09-28 23:30] VITALS: BP 142/98
[2020-09-29 09:01] LABS: BASOPHIL % 0.5 % (0.2-1.3); PLATELET COUNT 269 x10^3mcL (179-408)
[2020-09-29 09:06] LABS: RED CELL DISTRIBUTION WIDTH 18.4 % (12.3-17.7)
[2020-09-29 09:14] LABS: ALKALINE PHOSPHATASE 57 U/L (46-116); ALT/SGPT 27 U/L (14-59); AST/SGOT 37 U/L (15-37); BILIRUBIN TOTAL 1.2 mg/dL (0.20-1.00); CALCIUM 7.8 mg/dL (8.5-10.1); CARBON DIOXIDE 25.4 mmol/L (21-32); CHLORIDE SERUM 104 mmol/L (98-107); CREATININE SERUM 0.6 mg/dL (0.6-1.0); GFR1 > 60 mL/min; GLUCOSE SERUM 90 mg/dL (74-106); MAGNESIUM 1.8 mg/dL (1.8-2.4); POTASSIUM SERUM 3.2 mmol/L (3.5-5.1); SODIUM SERUM 135 mmol/L (136-145); TOTAL PROTEIN, SERUM 7.2 g/dL (6.4-8.2)
[2020-09-29 13:01] LABS: rbc morphology (normal/abnorm) ABNORMAL (NORMAL)
[2020-09-29 20:24] VITALS: BP 148/68
[2020-09-30 04:15] VITALS: BP 158/79
[2020-09-30 04:34] VITALS: BP 136/74
[2020-09-30 22:39] VITALS: BP 149/77
[2020-10-01] VITALS: BP 141/94
[2020-10-01 07:47] VITALS: BP 141/67
[2020-10-01 10:14] LABS: BASOPHIL % 0.3 % (0.2-1.3); PLATELET COUNT 288 x10^3mcL (179-408)
[2020-10-01 10:29] LABS: CALCIUM 8.2 mg/dL (8.5-10.1); CARBON DIOXIDE 25.9 mmol/L (21-32); CHLORIDE SERUM 100 mmol/L (98-107); CREATININE SERUM 0.6 mg/dL (0.6-1.0); GFR1 > 60 mL/min; GLUCOSE SERUM 91 mg/dL (74-106); SODIUM SERUM 133 mmol/L (136-145)
[2020-10-01 10:48] LABS: POTASSIUM SERUM 2.9 mmol/L (3.5-5.1)
[2020-10-01 10:50] LABS: RED CELL DISTRIBUTION WIDTH 18.5 % (12.3-17.7)
[2020-10-01 12:00] VITALS: BP 140/76
[2020-10-01 12:50] LABS: rbc morphology (normal/abnorm) NORMAL (NORMAL)
[2020-10-01 16:00] VITALS: BP 146/80
[2020-10-01 19:30] VITALS: BP 142/96
[2020-10-02 06:15] VITALS: BP 134/76
[2020-10-02 07:53] VITALS: BP 140/79
[2020-10-02 12:48] VITALS: BP 136/76
[2020-10-02 13:57] LABS: ALKALINE PHOSPHATASE 59 U/L (46-116); AST/SGOT 35 U/L (15-37); BILIRUBIN TOTAL 1.09 mg/dL (0.20-1.00); CALCIUM 8.3 mg/dL (8.5-10.1); CARBON DIOXIDE 24.8 mmol/L (21-32); CHLORIDE SERUM 103 mmol/L (98-107); CREATININE SERUM 0.6 mg/dL (0.6-1.0); GFR1 > 60 mL/min; GLUCOSE SERUM 82 mg/dL (74-106); POTASSIUM SERUM 3.6 mmol/L (3.5-5.1); SODIUM SERUM 135 mmol/L (136-145); TOTAL PROTEIN, SERUM 7.3 g/dL (6.4-8.2)
[2020-10-02 14:16] LABS: ALT/SGPT 26 U/L (14-59)
[2020-10-02 14:31] LABS: BASOPHIL % 0.7 % (0.2-1.3); PLATELET COUNT 265 x10^3mcL (179-408)
[2020-10-02 14:40] LABS: RED CELL DISTRIBUTION WIDTH 18.4 % (12.3-17.7)
[2020-10-02 16:00] VITALS: BP 153/76
[2020-10-02 19:30] VITALS: BP 150/75
[2020-10-03 00:56] VITALS: BP 148/76
[2020-10-03 06:35] VITALS: BP 144/76
[2020-10-03 08:00] VITALS: BP 145/60
[2020-10-03 12:52] VITALS: BP 138/68
[2020-10-03 16:30] VITALS: BP 141/74
[2020-10-03 19:10] VITALS: BP 133/84
[2020-10-04 00:01] VITALS: BP 137/86
[2020-10-04 06:00] VITALS: BP 134/88
[2020-10-04 11:17] LABS: PLATELET COUNT 250 x10^3mcL (179-408)
[2020-10-04 11:23] LABS: RED CELL DISTRIBUTION WIDTH 18.2 % (12.3-17.7)
[2020-10-04 11:31] LABS: CALCIUM 8.1 mg/dL (8.5-10.1); CARBON DIOXIDE 25.6 mmol/L (21-32); CHLORIDE SERUM 102 mmol/L (98-107); CREATININE SERUM 0.5 mg/dL (0.6-1.0); GFR1 > 60 mL/min; GLUCOSE SERUM 84 mg/dL (74-106); POTASSIUM SERUM 3.1 mmol/L (3.5-5.1); SODIUM SERUM 136 mmol/L (136-145)
[2020-10-04 12:00] VITALS: BP 135/68
[2020-10-04 14:11] LABS: BAND NEUTROPHIL 2 % (0-10); BASOPHIL 0 % (0-2); MONOCYTE 6 % (0-7); SEGMENTED NEUTROPHILS 72 % (37-75)
[2020-10-04 14:12] LABS: rbc morphology (normal/abnorm) ABNORMAL (NORMAL)
[2020-10-04 16:00] VITALS: BP 150/76
[2020-10-05 07:55] VITALS: BP 153/82
[2020-10-05 11:37] VITALS: BP 154/77
[2020-10-05 12:26] LABS: CALCIUM 7.8 mg/dL (8.5-10.1); CARBON DIOXIDE 25.6 mmol/L (21-32); CHLORIDE SERUM 102 mmol/L (98-107); CREATININE SERUM 0.5 mg/dL (0.6-1.0); GFR1 > 60 mL/min; GLUCOSE SERUM 78 mg/dL (74-106); SODIUM SERUM 137 mmol/L (136-145)
[2020-10-05 13:07] LABS: POTASSIUM SERUM 2.9 mmol/L (3.5-5.1)
[2020-10-05 16:00] VITALS: BP 142/70
[2020-10-05 20:13] VITALS: BP 152/82
[2020-10-06 00:25] VITALS: BP 152/82
== END 2020-10-06 03:30 | disposition short-term general hospital (02) | DRG 254 ==
LOC: ED 17:54 → MU 20:55
PROVIDERS: Emergency Medicine; Hospitalist; Obstetrics & Gynecology; Psychiatry & Neurology Neurology; ADMIT Hospitalist; ATTEND Hospitalist
DX: R19.03 Right lower quadrant abdominal swelling, mass and lump (principal); I11.0 Hypertensive heart disease with heart failure; I50.9 Heart failure, unspecified; E66.01 Morbid (severe) obesity due to excess calories; Z20.822 Contact with and (suspected) exposure to COVID-19; E87.1 Hypo-osmolality and hyponatremia; R10.9 Unspecified abdominal pain; D64.9 Anemia, unspecified; K57.90 Diverticulosis of intestine, part unspecified, without perforation or abscess without bleeding; N83.9 Noninflammatory disorder of ovary, fallopian tube and broad ligament, unspecified; F41.9 Anxiety disorder, unspecified; E87.6 Hypokalemia; Z88.5 Allergy status to narcotic agent; Z88.8 Allergy status to other drugs, medicaments and biological substances; Z90.49 Acquired absence of other specified parts of digestive tract; Z80.3 Family history of malignant neoplasm of breast; Z82.49 Family history of ischemic heart disease and other diseases of the circulatory system; Z79.899 Other long term (current) drug therapy; Z68.38 Body mass index [BMI] 38.0-38.9, adult
CPT/HCPCS: G0378; J1170; J1650; J2185; J2270; J2405; J7030; P9047; U0003

== ENCOUNTER 2020-11-07 04:17 | Emergency (ER) | payer OTHER ==
[~2020-11-07] VITALS: Ht 172.7 cm; Wt 99.8 kg
[2020-11-07 04:23] VITALS: Ht 172.7 cm; Wt 99.8 kg
[2020-11-07 06:23] LABS: CALCIUM 9.1 mg/dL (8.5-10.1); CARBON DIOXIDE 21.2 mmol/L (21-32); CHLORIDE SERUM 101 mmol/L (98-107); CREATININE SERUM 0.7 mg/dL (0.6-1.0); GFR1 > 60 mL/min; GLUCOSE SERUM 141 mg/dL (74-106); POTASSIUM SERUM 3.2 mmol/L (3.5-5.1); SODIUM SERUM 134 mmol/L (136-145)
[2020-11-07 06:28] LABS: ALKALINE PHOSPHATASE 53 U/L (46-116); ALT/SGPT 19 U/L (14-59); AST/SGOT 31 U/L (15-37); BILIRUBIN TOTAL 1.6 mg/dL (0.20-1.00)
[2020-11-07 06:30] LABS: ALBUMIN 3.1 g/dL (3.4-5.0); TOTAL PROTEIN, SERUM 9.2 g/dL (6.4-8.2)
[2020-11-07 06:49] LABS: RED CELL DISTRIBUTION WIDTH 28.3 % (12.3-17.7)
[2020-11-07 06:50] LABS: PLATELET COUNT 468 x10^3mcL (179-408)
[2020-11-07 09:37] LABS: BAND NEUTROPHIL 1 % (0-10); MONOCYTE 7 % (0-7); SEGMENTED NEUTROPHILS 78 % (37-75); rbc morphology (normal/abnorm) ABNORMAL (NORMAL)
[2020-11-07 13:49] VITALS: BP 145/74
== END 2020-11-07 14:09 | disposition short-term general hospital (02) ==
LOC: ED 04:17
PROVIDERS: Emergency Medicine
DX: K56.699 Other intestinal obstruction unspecified as to partial versus complete obstruction (principal); R19.00 Intra-abdominal and pelvic swelling, mass and lump, unspecified site; I50.9 Heart failure, unspecified; I11.0 Hypertensive heart disease with heart failure; Z20.822 Contact with and (suspected) exposure to COVID-19; Z98.890 Other specified postprocedural states; Z90.89 Acquired absence of other organs; Z88.8 Allergy status to other drugs, medicaments and biological substances
CPT/HCPCS: J2270; J2405; J7030

== ENCOUNTER 2020-11-21 20:24 | Emergency (ER) | payer OTHER, SELFPAY ==
[~2020-11-21] VITALS: Ht 172.7 cm; Wt 102.1 kg
[2020-11-21 20:40] VITALS: Ht 172.7 cm; Wt 102.1 kg
[2020-11-21 22:05] LABS: BASOPHIL % 0.4 % (0.2-1.3)
[2020-11-21 22:08] LABS: PLATELET COUNT 432 x10^3mcL (179-408); RED CELL DISTRIBUTION WIDTH 26.7 % (12.3-17.7)
[2020-11-21 22:14] LABS: ALKALINE PHOSPHATASE 156 U/L (46-116); ALT/SGPT 13 U/L (14-59); AST/SGOT 32 U/L (15-37); BILIRUBIN TOTAL 2.7 mg/dL (0.20-1.00); CALCIUM 8.4 mg/dL (8.5-10.1); CARBON DIOXIDE 24.1 mmol/L (21-32); CHLORIDE SERUM 94 mmol/L (98-107); CREATININE SERUM 0.9 mg/dL (0.6-1.0); GFR1 > 60 mL/min; GLUCOSE SERUM 95 mg/dL (74-106); LIPASE 45 IU/L (73-393); SODIUM SERUM 128 mmol/L (136-145); TOTAL PROTEIN, SERUM 7.9 g/dL (6.4-8.2)
[2020-11-21 22:15] LABS: AMYLASE 10 U/L (25-115); POTASSIUM SERUM 2.9 mmol/L (3.5-5.1)
[2020-11-21 22:16] LABS: rbc morphology (normal/abnorm) ABNORMAL (NORMAL)
[2020-11-22] MEDS ORDERED: ONDANSETRON4 M3 PO (00:09)
[2020-11-22] MEDS ORDERED: DICLOFENAC SODI75 MG PO (00:09)
[2020-11-22 01:39] VITALS: BP 115/55
== END 2020-11-22 01:40 | disposition home or self-care (01) ==
LOC: ED 20:24
PROVIDERS: Emergency Medicine
DX: C79.9 Secondary malignant neoplasm of unspecified site (principal); I11.0 Hypertensive heart disease with heart failure; I50.9 Heart failure, unspecified; Z90.89 Acquired absence of other organs; Z88.6 Allergy status to analgesic agent
CPT/HCPCS: C9113; J2270; J2405; J7030